=== PATIENT | female | born 1990 | race Caucasian/White ===

== ENCOUNTER 2017-03-08 21:24 | Emergency (ER) | payer OTHER ==
[~2017-03-08] VITALS: Ht 157.5 cm; Wt 68.0 kg
--- NOTE | 2017-03-08 22:20 | NUR ---
Patient discharged to home in stable conditon. Written and verbal after care instructions given. Patient verbalizes understanding of instructions.
== END 2017-03-08 22:21 | disposition home or self-care (01) ==
LOC: ER 21:25
DX: R19.7 Diarrhea, unspecified (principal)
CPT/HCPCS: 99283; A4663